=== PATIENT | male | born 1970 | race Two or more races ===

== ENCOUNTER 2020-08-27 21:25 | Emergency (ER) | payer OTHER ==
[~2020-08-27] VITALS: Ht 177.8 cm; Wt 131.1 kg
[2020-08-27] MEDS ORDERED: ELIQUIS5 MG (22:09)
[2020-08-27] MEDS ORDERED: TOPROL XL25 M1 (22:09)
[2020-08-28] MEDS ORDERED: ALBUTEROL2.5 MG/3 M IH (07:37)
[2020-08-28] MEDS ORDERED: ZYNCOF 20-400120 ML PO (07:37)
[2020-08-28] MEDS ORDERED: MEDROL8 MG PO (07:37)
[2020-08-28] MEDS ORDERED: ZITHROMAX500 MG PO (07:37)
[2020-08-28] MEDS ORDERED: SYMBICORT 16010.2 GM IH (07:37)
== END 2020-08-28 08:04 | disposition home or self-care (01) ==
LOC: ER 21:25
DX: U07.1 COVID-19 (principal); J12.82 Pneumonia due to coronavirus disease 2019; R06.02 Shortness of breath
CPT/HCPCS: 36600; 71260; 82805; 94640 ×2; Q9965

== ENCOUNTER → 2020-08-28 13:30 | Outpatient (CLI) | payer OTHER ==
[~2020-08-28 13:30] MED LIST: ALBUTEROL2.5 MG/3 M IH; ELIQUIS5 MG; MEDROL8 MG PO; SYMBICORT 16010.2 GM IH; TOPROL XL25 M1; ZITHROMAX500 MG PO; ZYNCOF 20-400120 ML PO
== END | disposition home or self-care (01) ==
LOC: LAB 13:30
PROVIDERS: ATTEND General Practice
DX: U07.1 COVID-19 (principal); R05 Cough; R50.9 Fever, unspecified; R06.02 Shortness of breath; Z03.818 Encounter for observation for suspected exposure to other biological agents ruled out

== ENCOUNTER 2024-03-08 08:01 | Emergency (ER) | payer OTHER ==
[~2024-03-08] VITALS: Ht 177.8 cm; Wt 131.1 kg
[2024-03-08] MEDS ORDERED: ATORVASTATIN CA20 MG (08:04)
[2024-03-08] MEDS ORDERED: GLUMETZA1000 MG (08:04)
[2024-03-08] MEDS ORDERED: ZYPREXA20 MG (08:04)
[2024-03-08 08:43] LABS: HEMATOCRIT 44.4 % (39.0-48.0); HEMOGLOBIN 14.9 g/dL (13-16.00); MEAN CELL VOLUME 84.8 fL (80.0-100.00); MEAN CORPUSCULAR HEMOGLOBIN 28.4 pg (27.00-32.0); MEAN CORPUSCULAR HGB CONC 33.5 g/dl (32.0-36.0); PLATELET COUNT 202 K/uL (150-450); RED BLOOD COUNT 5.23 M/uL (4.00-6.00); RED CELL DISTRIBUTION WIDTH 14.6 % (11.5-14.5)
== END 2024-03-08 10:15 | disposition home or self-care (01) ==
LOC: ER 08:02
PROVIDERS: General Practice
DX: U07.1 COVID-19 (principal); R50.9 Fever, unspecified